=== PATIENT | female | born 1975 | race Caucasian/White ===

== ENCOUNTER 2017-10-14 19:18 | Emergency (ER) | payer SELFPAY ==
[~2017-10-14] VITALS: Ht 157.5 cm; Wt 76.2 kg
[2017-10-14 19:43] LABS: HEMATOCRIT 46.3 % (36.0-46.0); HEMOGLOBIN 16.1 G/DL (11.9-15.5); MCH 30.6 PG (29.0-34.0); MCHC 34.8 G/DL (30.0-36.0); PLATELET COUNT 256 K/uL (156-360); RBC DIS.WIDTH-CV 12.3 % (11.8-14.6); RBC DIS.WIDTH-SD 40.2 % (39-53); RED BLOOD COUNT 5.26 M/uL (3.80-5.20); WHITE BLOOD COUNT 10.2 K/uL (4.1-10.2)
[2017-10-14 19:55] LABS: ALBUMIN 4.6 g/dL (3.2-4.8); CHLORIDE 108 mEq/L (99-109); POTASSIUM 3.4 mEq/L (3.7-5.4); SODIUM 138 mEq/L (136-147)
[2017-10-14 19:57] LABS: GLUCOSE 117 mg/dL (70-99); TOTAL PROTEIN 7.3 g/dL (6.4-8.3)
[2017-10-14 19:59] LABS: TOTAL BILIRUBIN 0.4 mg/dL (0.0-1.0)
[2017-10-14 20:01] LABS: ALKALINE PHOSPHATASE 82 IU/L (3-129); CREATININE 0.8 mg/dL (0.6-1.3); GFR ESTIMATE (CALCULATED) > 59 mL/min/
[2017-10-14 20:02] LABS: UREA NITROGEN (BUN) 10 mg/dL (9-23)
[2017-10-14 20:03] LABS: AST (GOT) 29 IU/L (2-34)
[2017-10-14 20:04] LABS: ALT (GPT) 43 IU/L (3-49); LIPASE 18 U/L (1.0-51.0)
[2017-10-14 20:10] LABS: TROP-I INTERPRETATION NEGATIVE; TROPONIN-I < 0.01 ng/mL (0.0-0.30)
[2017-10-14 20:21] LABS: APPEARANCE CLOUDY ((CLEAR)); BILIRUBIN NEGATIVE; BLOOD NEGATIVE; COLOR YELLOW ((YELLOW)); GLUCOSE (STRIP) NEGATIVE; KETONES 20; LEUKOCYTES NEGATIVE; NITRITE NEGATIVE; PROTEIN (STRIP) NEGATIVE; SPECIFIC GRAVITY 1.015 (1.000-1.030); UROBILINOGEN 0.2 MG/DL (0.2-1.0)
[2017-10-14 20:32] LABS: AMPHETAMINE NEGATIVE (500 ng/mL); BARBITURATES NEGATIVE (200 ng/mL); BENZODIAZEPINES NEGATIVE (150 ng/mL); BUPRENORPHINE NEGATIVE (10 ng/mL); COCAINE NEGATIVE (150 ng/mL); METHADONE NEGATIVE (200 ng/mL); METHAMPHETAMINE NEGATIVE (500 ng/mL); OPIATES (MORPHINE) NEGATIVE (100 ng/mL); OXYCODONE NEGATIVE (100 ng/mL); PHENCYCLIDINE NEGATIVE (25 ng/mL); PROPOXYPHENE NEGATIVE (300 ng/mL); THC CANNABINOIDS NEGATIVE (50 ng/mL); TRICYCLIC ANTIDEPRESSANTS NEGATIVE (300 ng/mL)
[2017-10-14 20:46] LABS: AMORPHOUS URATES CRYSTALS 3+; BACTERIA 1+ /HPF; EPITHELIAL CELLS 4+ /HPF; RED BLOOD CELLS 0-5 /HPF (0-5); UCUL ADDED? NO; WHITE BLOOD CELLS 0-5 /HPF (0-5)
[2017-10-14 20:47] LABS: MUCUS TRACE /LPF
[2017-10-14] MEDS ORDERED: BACTRIM,SEPT1 TABLET PO (21:18)
[2017-10-14 21:50] VITALS: BP 133/73
== END 2017-10-14 21:52 | disposition home or self-care (01) ==
LOC: EME 19:18
PROVIDERS: Emergency Medicine
DX: R07.89 Other chest pain (principal); R06.02 Shortness of breath; R19.7 Diarrhea, unspecified; R45.1 Restlessness and agitation; T45.0X5A Adverse effect of antiallergic and antiemetic drugs, initial encounter; F17.200 Nicotine dependence, unspecified, uncomplicated
CPT/HCPCS: 71045; 80053; 81003; 83690; 84484; 85027; 93005; 99281; 99285; J2060; J7030